=== PATIENT | male | born 1990 | race Caucasian/White ===

== ENCOUNTER 2017-07-11 08:01 | Outpatient (CLI) | payer BC ==
--- NOTE | 2017-07-11 09:11 | ULT ---
ABDOMINAL ULTRASOUND: DATE: 07/11/17. COMPARISON: None. HISTORY: Splenomegaly and hydronephrosis. TECHNIQUE: Multiplanar, mcgraw scale sonographic imaging of the abdomen obtained. FINDINGS: The imaged pancreas is unremarkable. The body and tail are partially obscured by bowel gas. Imaged IVC and aorta appear grossly unremarkable. The hepatic parenchyma is heterogeneous and echogenic suggesting possible hepatocellular disease, suc h as steatosis. The right kidney measures 9.7 cm in craniocaudal dimension and demonstrates no stone, hydronephrosis, or mass. No gallbladder wall thickening or pericholecystic fluid. No gallstones are seen. The com mon bile duct measures 3 mm, within normal limits. The left kidney measures 9.8 cm in craniocaudal dimension and demonstrates no stone, hydronephrosis, or mass lesion. The spleen measures 10.7 x 3.4 x 3.2 cm. Sonographic Yu's sign is negative. IMPRESSION: 1. Increased echogenicity of the hepatic parenchyma suggests steatosis. 2. No evidence for hydronephrosis on either side. 3. The spleen measures up to 10.7 cm, within normal limits. POS: [facility]
== END 2017-07-11 08:02 | disposition home or self-care (01) ==
LOC: ULT 08:01
PROVIDERS: ATTEND Internal Medicine Medical Oncology
DX: R16.1 Splenomegaly, not elsewhere classified (principal); D75.1 Secondary polycythemia
CPT/HCPCS: 76700